=== PATIENT | female | born 1940 | race Caucasian/White ===

== ENCOUNTER 2016-06-09 09:31 | Day surgery (SDC) | payer OTHER, MEDICARE ==
[~2016-06-09] VITALS: Ht 160 cm; Wt 62.6 kg
[~2016-06-09 09:31] MED LIST: ALTOPREV40 MG PO; Aspirin E.C. PO; CLARITIN,ALAVAR10 MG PO; CO Q-10100 MG PO; CYMBALTA60 MG PO; Cymbalta PO; DULCOLAX5 MG PO; EFFEXOR75 MG PO; Ecotrin PO; Flonase NS; GABAPENTIN100 MG PO; HYDROCODON-ACE1 EA11 PO; HYDROCODON-ACE1 EAC7 PO; K-Dur PO; LIPITOR40 MG PO; LIPITOR80 MG PO; LO-DOSE ASPIRIN81 M1 PO; LOVASTATIN40 MG PO; Levaquin PO; Lipitor PO; MEGARED OMEGA-1 EACH PO; METOPROLOL SUCC25 MG PO; NEURONTIN100 MG PO; OMEPRAZOLE40 M1 PO; OXYCODONE HCL10 MG PO; PLAVIX75 MG PO; Plavix PO; PriLOSEC OTC PO; Proventil,Ventolin H IH; STOOL SOFTENER100 MG PO; TOPROL XL25 MG PO; TOPROL XL50 MG PO; TRAMADOL HCL50 MG PO; ULTRAM50 MG PO; VENTOLIN HFA18 GM IH; VITAMIN D32000 UNI1 PO; VITAMIN D400 UNI1 PO; Vicodin,Norco 5/325 PO; ZOLOFT20 MG/ML PO; Zocor PO; Zofran
[2016-06-09 10:55] LABS: ANION GAP 9 MEQ/L (2-14); CHLORIDE 104 MEQ/L (99-109); POTASSIUM 4.5 MEQ/L (3.7-5.4); SAMPLE HEMOLYSIS CHECK 0; SAMPLE ICTERIC CHECK 0; SAMPLE LIPEMIA CHECK 0; SODIUM 141 MEQ/L (136-147)
[2016-06-09 11:00] LABS: GFR ESTIMATE (CALCULATED) > 59 mL/min/; GLUCOSE 111 mg/dL (70-99); UREA NITROGEN (BUN) 10 mg/dL (9-23)
== END 2016-06-09 12:50 | disposition home or self-care (01) ==
LOC: PAIN 09:31 → SDC 10:00 → PAIN 12:50
PROVIDERS: Anesthesiology
PROC: 3E0U33Z Introduction of Anti-inflammatory into Joints, Percutaneous Approach (ICD-10-PCS; principal; 2016-06-09)
DX: M46.1 Sacroiliitis, not elsewhere classified (principal); M47.816 Spondylosis without myelopathy or radiculopathy, lumbar region; M53.3 Sacrococcygeal disorders, not elsewhere classified; E11.9 Type 2 diabetes mellitus without complications; I10 Essential (primary) hypertension; F41.1 Generalized anxiety disorder; J44.9 Chronic obstructive pulmonary disease, unspecified; K21.9 Gastro-esophageal reflux disease without esophagitis; Z87.891 Personal history of nicotine dependence
CPT/HCPCS: 80048; J1030; J3010; S0020

== ENCOUNTER 2016-09-10 10:44 | Day surgery (SDC) | payer OTHER, MEDICARE ==
[~2016-09-10] VITALS: Ht 160 cm; Wt 62.6 kg
[~2016-09-10 10:44] MED LIST changes: +FLONASE ALLERG9.9 ML BOTH NARES; +NITROSTAT0.4 MG SL
== END 2016-09-10 13:02 | disposition home or self-care (01) ==
LOC: PAIN 10:44 → SDC 11:45 → PAIN 13:02
PROC: 3E0S33Z Introduction of Anti-inflammatory into Epidural Space, Percutaneous Approach (ICD-10-PCS; principal; 2016-09-10)
DX: M54.16 Radiculopathy, lumbar region (principal); F41.9 Anxiety disorder, unspecified; I25.10 Atherosclerotic heart disease of native coronary artery without angina pectoris; Z95.5 Presence of coronary angioplasty implant and graft; Z79.02 Long term (current) use of antithrombotics/antiplatelets; I10 Essential (primary) hypertension; Z98.1 Arthrodesis status; J44.9 Chronic obstructive pulmonary disease, unspecified; K21.9 Gastro-esophageal reflux disease without esophagitis; E78.5 Hyperlipidemia, unspecified; Z87.891 Personal history of nicotine dependence; I25.2 Old myocardial infarction; G47.30 Sleep apnea, unspecified; Z79.82 Long term (current) use of aspirin; Z88.8 Allergy status to other drugs, medicaments and biological substances
CPT/HCPCS: J1030; J2250; J3010; S0020

== ENCOUNTER 2016-10-02 15:56 | Emergency (ER) | payer OTHER, MEDICARE ==
[~2016-10-02] VITALS: Ht 157.5 cm; Wt 63.8 kg
[2016-10-02 17:10] LABS: HEMATOCRIT 44.4 % (36.0-46.0); MCH 33.2 PG (29.0-34.0); MCHC 31.8 G/DL (30.0-36.0); MCV 104.5 FL (83-99); MEAN PLAT.VOLUME 10.6 uM^3 (9.5-12.4); PLATELET COUNT 123 K/uL (156-360); RBC DIS.WIDTH-CV 12.3 % (11.8-14.6); RED BLOOD COUNT 4.25 M/uL (3.80-5.20); WHITE BLOOD COUNT 7.2 K/uL (4.1-10.2)
[2016-10-02 17:17] LABS: CHLORIDE 97 mEq/L (99-109); POTASSIUM 4.2 mEq/L (3.7-5.4); SODIUM 134 mEq/L (136-147)
[2016-10-02 17:20] LABS: GLUCOSE 83 mg/dL (70-99)
[2016-10-02 17:21] LABS: ANION GAP 9 MEQ/L (2-14)
[2016-10-02 17:22] LABS: TOTAL BILIRUBIN 0.4 mg/dL (0.0-1.0)
[2016-10-02 17:23] LABS: ALKALINE PHOSPHATASE 82 IU/L (3-129); GFR ESTIMATE (CALCULATED) > 59 mL/min/
[2016-10-02 17:24] LABS: UREA NITROGEN (BUN) 15 mg/dL (9-23)
[2016-10-02 18:19] LABS: ADD MIUA? NO; BILIRUBIN NEGATIVE; BLOOD NEGATIVE; COLOR STRAW ((YELLOW)); GLUCOSE (STRIP) NEGATIVE; KETONES NEGATIVE; LEUKOCYTES NEGATIVE; NITRITE NEGATIVE; PROTEIN (STRIP) NEGATIVE; SPECIFIC GRAVITY 1.004 (1.000-1.030); UCUL ADDED? NO; UROBILINOGEN 0.2 MG/DL (0.2-1.0)
[2016-10-02] MEDS ORDERED: ZOFRAN4 MG PO (21:04)
[2016-10-02 21:42] VITALS: BP 155/72
== END 2016-10-02 21:44 | disposition home or self-care (01) ==
LOC: EME 15:56
DX: K59.00 Constipation, unspecified (principal); R10.9 Unspecified abdominal pain; I25.2 Old myocardial infarction; K21.9 Gastro-esophageal reflux disease without esophagitis; I10 Essential (primary) hypertension; J44.9 Chronic obstructive pulmonary disease, unspecified; Z87.891 Personal history of nicotine dependence; Z79.82 Long term (current) use of aspirin
CPT/HCPCS: 74000; 74177; 80053; 81003; 85027; 99281; 99285

== ENCOUNTER 2016-10-03 21:25 | Inpatient (IN) | payer OTHER, MEDICARE ==
[~2016-10-03] VITALS: Ht 157.5 cm; Wt 66.0 kg
[~2016-10-03 21:25] MED LIST changes: +ZOFRAN4 MG PO
[2016-10-03 22:12] LABS: HEMATOCRIT 47.6 % (36.0-46.0); MCH 32.8 PG (29.0-34.0); MCHC 31.5 G/DL (30.0-36.0); MCV 103.9 FL (83-99); MEAN PLAT.VOLUME 10.7 uM^3 (9.5-12.4); PLATELET COUNT 127 K/uL (156-360); RBC DIS.WIDTH-CV 12.6 % (11.8-14.6); RBC DIS.WIDTH-SD 48.6 % (39-53); RED BLOOD COUNT 4.58 M/uL (3.80-5.20); WHITE BLOOD COUNT 8.2 K/uL (4.1-10.2)
[2016-10-03 22:23] LABS: CHLORIDE 97 mEq/L (99-109); POTASSIUM 4.3 mEq/L (3.7-5.4); SODIUM 137 mEq/L (136-147)
[2016-10-03 22:26] LABS: ANION GAP 12 MEQ/L (2-14)
[2016-10-03 22:28] LABS: ALKALINE PHOSPHATASE 90 IU/L (3-129); GLUCOSE 214 mg/dL (70-99); TOTAL BILIRUBIN 0.5 mg/dL (0.0-1.0)
[2016-10-03 22:29] LABS: GFR ESTIMATE (CALCULATED) 57 mL/min/
[2016-10-03 22:30] LABS: DIRECT BILIRUBIN 0.2 mg/dL (0.0-0.3); UREA NITROGEN (BUN) 17 mg/dL (9-23)
[2016-10-03 22:32] LABS: LIPASE 23 U/L (1.0-51.0)
[2016-10-03 23:33] LABS: TROP-I INTERPRETATION NEGATIVE; TROPONIN-I 0.01 ng/mL (0.0-0.30)
[2016-10-04 08:05] LABS: ADD MIUA? YES; BILIRUBIN NEGATIVE; BLOOD NEGATIVE; COLOR YELLOW ((YELLOW)); GLUCOSE (STRIP) NEGATIVE; KETONES NEGATIVE; LEUKOCYTES NEGATIVE; NITRITE NEGATIVE; PROTEIN (STRIP) 100; SPECIFIC GRAVITY 1.039 (1.000-1.030); UROBILINOGEN 0.2 MG/DL (0.2-1.0)
[2016-10-04 08:14] VITALS: BP 139/68
[2016-10-04 08:34] LABS: BACTERIA RARE /HPF; EPITHELIAL CELLS RARE /HPF; MUCUS NONE SEEN /LPF; RED BLOOD CELLS 0-5 /HPF (0-5); UCUL ADDED? NO; WHITE BLOOD CELLS 0-5 /HPF (0-5)
[2016-10-04 16:00] VITALS: BP 141/61
[2016-10-04] MEDS ORDERED: CYCLOBENZAPRINE10 MG PO (18:22)
[2016-10-04 19:22] VITALS: BP 142/70
[2016-10-05 00:23] VITALS: BP 129/61
[2016-10-05 06:52] LABS: HEMATOCRIT 41.1 % (36.0-46.0); MCH 33.2 PG (29.0-34.0); MCHC 30.4 G/DL (30.0-36.0); PLATELET COUNT 105 K/uL (156-360); RBC DIS.WIDTH-CV 12.9 % (11.8-14.6); RBC DIS.WIDTH-SD 51.8 % (39-53); RED BLOOD COUNT 3.76 M/uL (3.80-5.20); WHITE BLOOD COUNT 6.7 K/uL (4.1-10.2)
[2016-10-05 06:53] LABS: MCV 109.3 FL (83-99)
[2016-10-05 07:27] LABS: ANION GAP 9 MEQ/L (2-14); CHLORIDE 107 MEQ/L (99-109); POTASSIUM 4.5 MEQ/L (3.7-5.4); SAMPLE HEMOLYSIS CHECK 0; SAMPLE ICTERIC CHECK 0; SAMPLE LIPEMIA CHECK 0; SODIUM 141 MEQ/L (136-147); UREA NITROGEN (BUN) 12 mg/dL (9-23)
[2016-10-05 07:32] LABS: GFR ESTIMATE (CALCULATED) > 59 mL/min/; GLUCOSE 62 mg/dL (70-99)
[2016-10-05 08:13] VITALS: BP 129/58
[2016-10-05 11:37] VITALS: BP 136/65
[2016-10-05 16:12] VITALS: BP 136/61
[2016-10-05 19:51] VITALS: BP 147/87
[2016-10-05 23:52] VITALS: BP 139/63
[2016-10-06 04:40] VITALS: BP 160/69
[2016-10-06 08:14] VITALS: BP 170/56
[2016-10-06 12:07] VITALS: BP 176/78
[2016-10-06 14:54] VITALS: BP 173/81
[2016-10-06 23:00] VITALS: BP 130/61
[2016-10-07 03:32] VITALS: BP 165/71
[2016-10-07 06:29] LABS: EOSINOPHIL (%) 0 % (0-5); HEMATOCRIT 39.1 % (36.0-46.0); IMMATURE GRANULOCYTE (%) 0.7 % (0.0-0.7); IMMATURE GRANULOCYTE COUNT 0.1 K/uL; INSTRUMENT ABS NEUTROPHIL CT 7.3 K/uL; LYMPHOCYTE COUNT 0.5 K/uL (1.0-2.8); MCHC 30.9 G/DL (30.0-36.0); MCV 106.5 FL (83-99); MONOCYTE (%) 7.9 % (3-12); MONOCYTE COUNT 0.7 K/uL (0-0.8); NEUTROPHIL (%) 85.7 % (45-76); NEUTROPHIL COUNT 7.3 K/uL (1.8-6.4); PLATELET COUNT 114 K/uL (156-360); RBC DIS.WIDTH-CV 12.4 % (11.8-14.6); RBC DIS.WIDTH-SD 49.1 % (39-53); RED BLOOD COUNT 3.67 M/uL (3.80-5.20); WHITE BLOOD COUNT 8.5 K/uL (4.1-10.2)
[2016-10-07 07:04] LABS: ALKALINE PHOSPHATASE 60 IU/L (3-129); ANION GAP 5 MEQ/L (2-14); CHLORIDE 106 MEQ/L (99-109); DIRECT BILIRUBIN 0.1 mg/dL (0.0-0.3); GFR ESTIMATE (CALCULATED) > 59 mL/min/; MAGNESIUM 2.1 mg/dl (1.3-2.7); PREALBUMIN 6.8 mg/dL (10-40); SAMPLE HEMOLYSIS CHECK 5; SAMPLE ICTERIC CHECK 0; SAMPLE LIPEMIA CHECK 0; SODIUM 137 MEQ/L (136-147); TOTAL BILIRUBIN 0.6 MG/DL (0.0-1.0); TRIGLYCERIDES 149 MG/DL (Normal: <150); UREA NITROGEN (BUN) 8 mg/dL (9-23)
[2016-10-07 07:05] LABS: GLUCOSE 239 mg/dL (70-99); POTASSIUM ND MEQ/L (3.7-5.4)
[2016-10-07 07:20] VITALS: BP 167/75
[2016-10-07 08:47] LABS: POTASSIUM 4.2 MEQ/L (3.7-5.4)
[2016-10-07 12:05] VITALS: BP 139/84
[2016-10-07 16:25] VITALS: BP 146/75
[2016-10-07 17:47] LABS: POINT-OF-CARE METER ID UU14162508
[2016-10-07 19:42] VITALS: BP 181/85
[2016-10-07 23:30] VITALS: BP 187/89
[2016-10-08 00:53] LABS: POINT-OF-CARE METER ID UU14162508
[2016-10-08 03:26] VITALS: BP 157/70
[2016-10-08 05:52] LABS: POINT-OF-CARE METER ID UU14162508
[2016-10-08 06:52] LABS: EOSINOPHIL (%) 0 % (0-5); HEMATOCRIT 36.9 % (36.0-46.0); IMMATURE GRANULOCYTE (%) 2.4 % (0.0-0.7); IMMATURE GRANULOCYTE COUNT 0.2 K/uL; LYMPHOCYTE COUNT 0.8 K/uL (1.0-2.8); MCH 34.5 PG (29.0-34.0); MCHC 32.2 G/DL (30.0-36.0); MEAN PLAT.VOLUME 11.3 uM^3 (9.5-12.4); MONOCYTE (%) 9.1 % (3-12); MONOCYTE COUNT 0.7 K/uL (0-0.8); NEUTROPHIL (%) 77.6 % (45-76); RBC DIS.WIDTH-CV 12.5 % (11.8-14.6); RBC DIS.WIDTH-SD 48.5 % (39-53); RED BLOOD COUNT 3.45 M/uL (3.80-5.20); WHITE BLOOD COUNT 7.8 K/uL (4.1-10.2)
[2016-10-08 06:53] LABS: PLATELET COUNT 156 K/uL (156-360)
[2016-10-08 07:18] LABS: ALKALINE PHOSPHATASE 58 IU/L (3-129); ANION GAP 10 MEQ/L (2-14); ANION GAP 9 MEQ/L (2-14); CHLORIDE 105 MEQ/L (99-109); GFR ESTIMATE (CALCULATED) > 59 mL/min/; GLUCOSE 194 mg/dL (70-99); GLUCOSE 195 mg/dL (70-99); POTASSIUM 3.8 MEQ/L (3.7-5.4); SAMPLE HEMOLYSIS CHECK 0; SAMPLE ICTERIC CHECK 0; SAMPLE LIPEMIA CHECK 0; SODIUM 141 MEQ/L (136-147); SODIUM 142 MEQ/L (136-147); UREA NITROGEN (BUN) 9 mg/dL (9-23)
[2016-10-08 07:23] LABS: MAGNESIUM 1.6 mg/dl (1.3-2.7); TOTAL BILIRUBIN 0.3 MG/DL (0.0-1.0)
[2016-10-08 07:45] VITALS: BP 184/88
[2016-10-08 12:10] VITALS: BP 162/78
[2016-10-08 12:16] LABS: POINT-OF-CARE METER ID UU14162508
[2016-10-08 16:29] VITALS: BP 187/87
[2016-10-08 18:35] LABS: POINT-OF-CARE USER ID PUTDRM
[2016-10-08 19:44] VITALS: BP 176/90
[2016-10-08 21:46] LABS: POINT-OF-CARE METER ID UU14162508
[2016-10-08 23:36] VITALS: BP 148/67
[2016-10-09 03:46] VITALS: BP 170/68
[2016-10-09 06:32] LABS: POINT-OF-CARE METER ID UU14162508
[2016-10-09 07:00] LABS: EOSINOPHIL (%) 0.1 % (0-5); HEMATOCRIT 40.7 % (36.0-46.0); IMMATURE GRANULOCYTE (%) 2.1 % (0.0-0.7); IMMATURE GRANULOCYTE COUNT 0.2 K/uL; LYMPHOCYTE COUNT 0.9 K/uL (1.0-2.8); MCH 32.7 PG (29.0-34.0); MCHC 31.9 G/DL (30.0-36.0); MEAN PLAT.VOLUME 10.7 uM^3 (9.5-12.4); MONOCYTE (%) 9.4 % (3-12); MONOCYTE COUNT 0.7 K/uL (0-0.8); NEUTROPHIL (%) 76.9 % (45-76); PLATELET COUNT 194 K/uL (156-360); RBC DIS.WIDTH-CV 12.4 % (11.8-14.6); RBC DIS.WIDTH-SD 47.2 % (39-53); RED BLOOD COUNT 3.97 M/uL (3.80-5.20); WHITE BLOOD COUNT 7.8 K/uL (4.1-10.2)
[2016-10-09 07:03] LABS: MCV 102.5 FL (83-99)
[2016-10-09 07:12] LABS: ANION GAP 12 MEQ/L (2-14); CHLORIDE 104 MEQ/L (99-109); POTASSIUM 3.4 MEQ/L (3.7-5.4); SAMPLE HEMOLYSIS CHECK 0; SAMPLE ICTERIC CHECK 0; SAMPLE LIPEMIA CHECK 0; SODIUM 143 MEQ/L (136-147); TOTAL BILIRUBIN 0.3 MG/DL (0.0-1.0)
[2016-10-09 07:25] VITALS: BP 147/72
[2016-10-09 07:25] LABS: ALKALINE PHOSPHATASE 63 IU/L (3-129); ANION GAP 13 MEQ/L (2-14); CHLORIDE 104 MEQ/L (99-109); GFR ESTIMATE (CALCULATED) > 59 mL/min/; GLUCOSE 178 mg/dL (70-99); POTASSIUM 3.4 MEQ/L (3.7-5.4); SAMPLE HEMOLYSIS CHECK 0; SAMPLE ICTERIC CHECK 0; SAMPLE LIPEMIA CHECK 0; SODIUM 143 MEQ/L (136-147); UREA NITROGEN (BUN) 14 mg/dL (9-23)
[2016-10-09 11:40] VITALS: BP 176/77
[2016-10-09 16:10] VITALS: BP 172/79
[2016-10-09 16:30] LABS: POINT-OF-CARE METER ID UU14162508
[2016-10-10 00:06] VITALS: BP 177/77
[2016-10-10 00:09] VITALS: BP 131/84
[2016-10-10 07:25] VITALS: BP 168/81
[2016-10-10 07:34] LABS: POINT-OF-CARE METER ID UU14162508
[2016-10-10 08:16] LABS: ANION GAP 13 MEQ/L (2-14); CHLORIDE 106 MEQ/L (99-109); GFR ESTIMATE (CALCULATED) > 59 mL/min/; GLUCOSE 185 mg/dL (70-99); MAGNESIUM 2.2 mg/dl (1.3-2.7); POTASSIUM 3.5 MEQ/L (3.7-5.4); SAMPLE HEMOLYSIS CHECK 0; SAMPLE ICTERIC CHECK 0; SAMPLE LIPEMIA CHECK 0; SODIUM 145 MEQ/L (136-147); UREA NITROGEN (BUN) 17 mg/dL (9-23)
[2016-10-10 12:09] LABS: POINT-OF-CARE METER ID UU14162508
[2016-10-10 15:25] VITALS: BP 136/67
[2016-10-10 16:45] LABS: POINT-OF-CARE METER ID UU14162508
[2016-10-10 21:30] LABS: POINT-OF-CARE METER ID UU14162508
[2016-10-11 00:42] VITALS: BP 144/89
[2016-10-11 06:49] LABS: POINT-OF-CARE METER ID UU14162508
[2016-10-11 07:05] VITALS: BP 163/71
[2016-10-11 07:10] VITALS: BP 143/71
[2016-10-11 07:19] LABS: ANION GAP 8 MEQ/L (2-14); CHLORIDE 104 MEQ/L (99-109); GFR ESTIMATE (CALCULATED) > 59 mL/min/; GLUCOSE 150 mg/dL (70-99); POTASSIUM 4.5 MEQ/L (3.7-5.4); SAMPLE HEMOLYSIS CHECK 0; SAMPLE ICTERIC CHECK 0; SAMPLE LIPEMIA CHECK 0; SODIUM 137 MEQ/L (136-147); UREA NITROGEN (BUN) 15 mg/dL (9-23)
[2016-10-11 12:14] LABS: POINT-OF-CARE METER ID UU14162508
[2016-10-11 15:15] VITALS: BP 145/69
[2016-10-11 16:00] VITALS: BP 136/69
[2016-10-12 00:26] VITALS: BP 144/66
[2016-10-12 06:22] LABS: POINT-OF-CARE METER ID UU14162508
[2016-10-12 07:14] LABS: ANION GAP 8 MEQ/L (2-14); CHLORIDE 105 MEQ/L (99-109); GFR ESTIMATE (CALCULATED) > 59 mL/min/; GLUCOSE 165 mg/dL (70-99); MAGNESIUM 2.2 mg/dl (1.3-2.7); POTASSIUM 5.2 MEQ/L (3.7-5.4); SAMPLE HEMOLYSIS CHECK 0; SAMPLE ICTERIC CHECK 0; SAMPLE LIPEMIA CHECK 0; SODIUM 137 MEQ/L (136-147)
[2016-10-12 07:20] VITALS: BP 142/67
[2016-10-12 07:23] LABS: ALKALINE PHOSPHATASE 95 IU/L (3-129); TOTAL BILIRUBIN 0.4 MG/DL (0.0-1.0); UREA NITROGEN (BUN) 27 mg/dL (9-23)
[2016-10-12] MEDS ORDERED: ONDANSETRON HCL4 MG PO (09:44)
[2016-10-12] MEDS ORDERED: AMLODIPINE BESYL5 MG PO (09:44)
[2016-10-12 12:04] LABS: POINT-OF-CARE METER ID UU14162508
[2016-10-12] MEDS ORDERED: HYDROCODON-ACE1 EAC9 PO (15:59)
[2016-10-12] MEDS ORDERED: MYCOSTATIN 100,60 ML PO (16:02)
[2016-10-12 16:15] VITALS: BP 134/67
== END 2016-10-12 16:43 | disposition home health service (06) | DRG 329 ==
LOC: EME 21:25 → EDOF 10-04 04:16 → 3EAST 10-04 04:16 → EDOF 10-04 04:16 → 3EAST 10-04 08:05 → 2SOUTH 10-06 22:21 → 2EAST 10-06 22:56
PROVIDERS: Hospitalist; Internal Medicine; Physician Assistant
PROC: 0DNB0ZZ Release Ileum, Open Approach (ICD-10-PCS; principal; 2016-10-06)
PROC: 0DBA0ZZ Excision of Jejunum, Open Approach (ICD-10-PCS; principal; 2016-10-06)
PROC: 0DBB0ZZ Excision of Ileum, Open Approach (ICD-10-PCS; principal; 2016-10-06)
PROC: 0DNA0ZZ Release Jejunum, Open Approach (ICD-10-PCS; principal; 2016-10-06)
PROC: 3E0436Z Introduction of Nutritional Substance into Central Vein, Percutaneous Approach (ICD-10-PCS; 2016-10-07)
DX: K56.5 Intestinal adhesions [bands] with obstruction (postinfection) (principal); E43 Unspecified severe protein-calorie malnutrition; B37.0 Candidal stomatitis; F33.9 Major depressive disorder, recurrent, unspecified; E78.5 Hyperlipidemia, unspecified; E83.39 Other disorders of phosphorus metabolism; E87.6 Hypokalemia; F41.9 Anxiety disorder, unspecified; I10 Essential (primary) hypertension; I25.10 Atherosclerotic heart disease of native coronary artery without angina pectoris; I27.2 Other secondary pulmonary hypertension; I35.0 Nonrheumatic aortic (valve) stenosis; J44.9 Chronic obstructive pulmonary disease, unspecified; K21.9 Gastro-esophageal reflux disease without esophagitis; G89.29 Other chronic pain; Z68.26 Body mass index [BMI] 26.0-26.9, adult; I25.2 Old myocardial infarction; Z79.82 Long term (current) use of aspirin; Z95.5 Presence of coronary angioplasty implant and graft
CPT/HCPCS: 71010; 74000; 74020; 74177; 76937; 80048; 80053; 81003; 82248; 82948; 83690; 83735; 84100; 84134; 84478; 84484; 84630 90; 84999; 85025; 85027; 88307; 93005; 94010; 94640; 94640 76; 94799; 99202; 99281; 99285; G0378; J0131; J0330; J0360; J0500; J0610; J1170; J1644; J1815; J2405; J2710; J2765; J3010; J7030; J7040; J7050; S0028

== ENCOUNTER 2016-11-16 08:52 | Day surgery (SDC) | payer OTHER, MEDICARE ==
[~2016-11-16] VITALS: Ht 157.5 cm; Wt 59.4 kg
[~2016-11-16 08:52] MED LIST changes: +AMLODIPINE BESYL5 MG PO; +CYCLOBENZAPRINE10 MG PO; +HYDROCODON-ACE1 EAC9 PO; +MYCOSTATIN 100,60 ML PO; +ONDANSETRON HCL4 MG PO; +SENOKOT S,PE1 TABLET PO
[2016-11-18] MEDS ORDERED: NORVASC5 MG PO (10:55)
[2016-11-18] MEDS ORDERED: LORCET 5-325 M1 EACH PO (10:57)
== END 2016-11-16 10:25 | disposition home or self-care (01) ==
LOC: PAIN 08:52 → SDC 09:45 → PAIN 10:25
DX: M47.816 Spondylosis without myelopathy or radiculopathy, lumbar region (principal); M54.5 Low back pain; Z98.1 Arthrodesis status; M54.2 Cervicalgia; I25.10 Atherosclerotic heart disease of native coronary artery without angina pectoris; I10 Essential (primary) hypertension; J44.9 Chronic obstructive pulmonary disease, unspecified; F41.8 Other specified anxiety disorders; K21.9 Gastro-esophageal reflux disease without esophagitis; G47.30 Sleep apnea, unspecified; I25.2 Old myocardial infarction; Z95.5 Presence of coronary angioplasty implant and graft; Z79.02 Long term (current) use of antithrombotics/antiplatelets; Z87.891 Personal history of nicotine dependence; Z79.891 Long term (current) use of opiate analgesic; Z79.82 Long term (current) use of aspirin
CPT/HCPCS: J1030; J3010; S0020

== ENCOUNTER 2016-11-19 09:56 | Day surgery (SDC) | payer OTHER, MEDICARE ==
[~2016-11-19] VITALS: Ht 157.5 cm; Wt 59.4 kg
[~2016-11-19 09:56] MED LIST changes: +LORCET 5-325 M1 EACH PO; +NORVASC5 MG PO
== END 2016-11-19 11:13 | disposition home or self-care (01) ==
LOC: PAIN 09:56 → SDC 13:45 → PAIN 13:45
DX: M50.30 Other cervical disc degeneration, unspecified cervical region (principal); M54.2 Cervicalgia; G89.29 Other chronic pain; I10 Essential (primary) hypertension; J44.9 Chronic obstructive pulmonary disease, unspecified; Z79.02 Long term (current) use of antithrombotics/antiplatelets; Z86.73 Personal history of transient ischemic attack (TIA), and cerebral infarction without residual deficits; G47.30 Sleep apnea, unspecified; M53.3 Sacrococcygeal disorders, not elsewhere classified; M54.5 Low back pain; E11.9 Type 2 diabetes mellitus without complications; E78.5 Hyperlipidemia, unspecified; K21.9 Gastro-esophageal reflux disease without esophagitis; I25.2 Old myocardial infarction; Z95.5 Presence of coronary angioplasty implant and graft; Z87.891 Personal history of nicotine dependence; Z79.82 Long term (current) use of aspirin; Z79.891 Long term (current) use of opiate analgesic
CPT/HCPCS: J1030; J2250; J3010; S0020

== ENCOUNTER 2017-07-19 09:52 | Day surgery (SDC) | payer OTHER, MEDICARE ==
[~2017-07-19] VITALS: Ht 157.5 cm; Wt 59.9 kg
[~2017-07-19 09:52] MED LIST changes: +AVAPRO150 MG PO; -CO Q-10100 MG PO; +CO Q-10200 MG PO; -CYCLOBENZAPRINE10 MG PO; +EFFEXOR XR150 MG PO; -EFFEXOR75 MG PO; +FLEXERIL10 MG PO; +LEVAQUIN500 MG PO; +OMEGA-31000 M1 PO; +PROAIR RESPICL90 MCG IH
== END 2017-07-19 11:45 | disposition home or self-care (01) ==
LOC: PAIN 09:52 → SDC 10:30 → PAIN 10:30
DX: M47.812 Spondylosis without myelopathy or radiculopathy, cervical region (principal); Z98.1 Arthrodesis status; M54.2 Cervicalgia; M51.36 Other intervertebral disc degeneration, lumbar region; M50.90 Cervical disc disorder, unspecified, unspecified cervical region; Z87.891 Personal history of nicotine dependence; I10 Essential (primary) hypertension; I25.10 Atherosclerotic heart disease of native coronary artery without angina pectoris; Z95.5 Presence of coronary angioplasty implant and graft; R01.1 Cardiac murmur, unspecified; Z79.02 Long term (current) use of antithrombotics/antiplatelets; Z88.8 Allergy status to other drugs, medicaments and biological substances
CPT/HCPCS: J1030; J2250; S0020

== ENCOUNTER 2017-10-28 06:50 | Day surgery (SDC) | payer OTHER, MEDICARE ==
[~2017-10-28] VITALS: Ht 157.5 cm; Wt 59.9 kg
[2017-10-28] MEDS ORDERED: METOPROLOL TART75 MG PO (07:04)
== END 2017-10-28 08:55 | disposition home or self-care (01) ==
LOC: PAIN 06:50 → SDC 07:30 → PAIN 07:30
DX: M47.816 Spondylosis without myelopathy or radiculopathy, lumbar region (principal); M51.36 Other intervertebral disc degeneration, lumbar region; M53.3 Sacrococcygeal disorders, not elsewhere classified; Z87.891 Personal history of nicotine dependence; M19.90 Unspecified osteoarthritis, unspecified site; Z98.1 Arthrodesis status; I35.0 Nonrheumatic aortic (valve) stenosis; I10 Essential (primary) hypertension; I25.10 Atherosclerotic heart disease of native coronary artery without angina pectoris; E78.5 Hyperlipidemia, unspecified; K21.9 Gastro-esophageal reflux disease without esophagitis; M85.80 Other specified disorders of bone density and structure, unspecified site; E55.9 Vitamin D deficiency, unspecified; Z79.82 Long term (current) use of aspirin; Z88.8 Allergy status to other drugs, medicaments and biological substances
CPT/HCPCS: J1030; S0020